=== PATIENT | female | born 1970 | race Two or more races ===

== ENCOUNTER → 2019-10-27 12:42 | Outpatient (CLI) | payer OTHER | END | disposition home or self-care (01) | LOC: RAD 12:42 | DX: M54.42 Lumbago with sciatica, left side (principal); M48.17 Ankylosing hyperostosis [Forestier], lumbosacral region; M48.16 Ankylosing hyperostosis [Forestier], lumbar region; M48.14 Ankylosing hyperostosis [Forestier], thoracic region; M48.12 Ankylosing hyperostosis [Forestier], cervical region; G54.8 Other nerve root and plexus disorders; G89.4 Chronic pain syndrome; M41.56 Other secondary scoliosis, lumbar region; M13.0 Polyarthritis, unspecified; G47.09 Other insomnia ==